=== PATIENT | female | born 1980 | race Caucasian/White ===

== ENCOUNTER → 2019-05-02 10:08 | Outpatient (CLI) | payer BC, SELFPAY ==
--- NOTE | ~2019-05-02 | XR_ITS ---
EXAMINATION: XR wrist LT min 3V DATE: 05/02/2019 10:23 INDICATION: Left wrist localized swelling, mass, and lump. TECHNIQUE: 4 views of left wrist were obtained. COMPARISON: None. FINDINGS: Bone alignment is normal. No fracture. There is mild osteoarthritis of second metacarpophal angeal joint. IMPRESSION: 1. Mild osteoarthritis of second metacarpophalangeal joint. Reviewed, dictated and finalized at location A. ALTY INSURANCE CLAIM ADJUSTER
--- NOTE | ~2019-05-02 | XR_ITS ---
EXAMINATION: XR hand LT min 3V DATE: 05/02/2019 10:23 INDICATION: Left hand localized swelling, mass, and lump. TECHNIQUE: 3 views of left hand were obtained. COMPARISON: None. FINDINGS: Bone alignment is normal. No fracture. There is mild osteoarthritis of second metacarpophal angeal joint. IMPRESSION: 1. Mild osteoarthritis of second metacarpophalangeal joint. Reviewed, dictated and finalized at location A. RAM ARRANGER
== END ==
PROVIDERS: PCP Internal Medicine; Visit Provider Internal Medicine
DX: M19.032 Primary osteoarthritis, left wrist (principal)
CPT/HCPCS: 73110; 73130

== ENCOUNTER 2020-03-19 23:12 | Emergency (ER) | payer BC, SELFPAY ==
--- NOTE | ~2020-03-19 | XR_ITS ---
EXAMINATION: XR chest 1V portable DATE: 03/19/2020 23:43 INDICATION: Tachycardia. Chest pain. TECHNIQUE: frontal view of the chest was obtained. COMPARISON: None FINDINGS: The lungs are clear with no focal airspace opacities, pulmonary edema, pleural effusion or pneumothor ax. Arch size is normal. There is mediastinal widening suspicious for bulky mediastinal lymphadenopat hy. Bones are unremarkable. IMPRESSION: 1. Mediastinal widening which raises concern for bulky mediastinal lymphadenopathy which could be due to lymphoma or metastatic disease. Recommend further evaluation with contrast-enhanced CT. In additi on to the chest would also include the neck, abdomen and pelvis to assess for extent of suspected dis ease and biopsy planning. Reviewed, dictated and finalized at location A. ER LOCKSTITCH IMPRESSION: 1. Mediastinal widening which raises concern for bulky mediastinal lymphadenopa thy which could be due to lymphoma or metastatic disease. Recommend further la luation with contrast-enhanced CT. In addition to the chest would also include the neck, abdomen and pelvis to assess for extent of suspected disease and biop sy planning.
--- NOTE | ~2020-03-19 | CT_ITS ---
EXAMINATION: CTA chest PE protocol EXAM DATE: 03/20/2020 00:43 INDICATION: Tachycardia. TECHNIQUE: Spiral CTA of the chest (pulmonary arteries) was performed with 100 cc Omnipaque 350 intr avenous contrast injection. Images were acquired during the pulmonary arterial phase. Coronal maxi mum intensity projection 3D-reconstructions were created by the technologist on dedicated workstation . Axial, coronal and sagittal reformatted images were reviewed. The dose-length product (DLP) for t his examination was 863.36 mGy-cm. The exposure was tailored according to patient size (auto mA exp osure control), and iterative reconstruction (ASIR) was used as additional dose reduction technique. There is no prior study for comparison. FINDINGS: Pulmonary arteries are well opacified and without intraluminal filling defects. No thora cic aortic dissection. The lungs are clear. Trace pericardial effusion. No pleural effusion. Trac heobronchial tree is patent. There are massive mediastinal and prevascular lymph nodes with prevasc ular conglomerate deven mass measuring 8.4 x 5.6 cm. There is left supraclavicular lymphadenopathy. Smaller left hilar lymphadenopathy. No axillary lymphadenopathy. There is no pneumothorax. Heart n ormal in size. No evidence of coronary arterial calcification. There is hepatic steatosis. There is thoracic spondylosis without osteoblastic or osteolytic lesions identified. IMPRESSION: 1. No pulmonary emboli. 2. Massive mediastinal, prevascular lymphadenopathy. Smaller left supraclavicular lymphadenopathy wo uld be accessible for ultrasound-guided biopsy. Reviewed, dictated and finalized at location A. IL BUSINESS MANAGER IMPRESSION: 1. No pulmonary emboli. 2. Massive mediastinal, prevascular lymphadenopathy. Smaller left supraclavicu lar lymphadenopathy would be accessible for ultrasound-guided biopsy.
[2020-03-19 23:13] VITALS: BP 164/85; PULSE 135; RESP 16; TEMP 37.3; O2SAT 99
--- NOTE | 2020-03-19 23:19 | ECG_ITS ---
Measurements Intervals [place] Rate: 135 P: 52 HI: 152 QRS: 9 QRSD: 90 T: 28 QT: 331 QTc: 496 Interpretive Statements SINUS TACHYCARDIA NONSPECIFIC T-WAVE ABNORMALITY- ANT/INF LEADS BASELINE WANDER- V2-V6 ABNORMAL ECG Electronically Signed On 03-20-2020 7:03:25 BATT MACHINE OPERATOR by Ramses Gonzalez D.O.
--- NOTE | 2020-03-19 23:21 | ED.CHESTPAIN ---
HPI - Chest Pain General Chief Complaint: Chest Pain Stated Complaint: elevated heart rate Time Seen by Provider: 03/19/20 23:19 Source: patient Mode of arrival: EMS Limitations: no limitations History of Present Illness HPI narrative: Patient is a 40-year-old female who presents with palpitations that began acutely tonight EMS was contacted patient was found to have SVT with a heart rate near 200 was given 6 of adenosine followed by 12 adenosine presents with a heart rate around 140 noting improvement but still feeling fatigued and weak started chemotherapy in the last week managed as [facility] in [place] with history of non-Hodgkin's lymphoma. Patient denies vomiting diarrhea or URI symptoms and on arrival just notes feeling fatigued with palpitations continuing patient is on a multitude of new medications to include some experimental medication for her non-Hodgkin's lymphoma has been experiencing GI upset with irritation of the abdomen that occurs with taking her chemo medication patient denies any current pain upon arrival. Patient notes she had Covid in August Related Data Home Medications Medication Instructions Recorded Confirmed omeprazole 20 mg capsule,delayed 20 mg PO .COMPLEX 02/21/19 01/10/20 release triamcinolone acetonide 0.025 % 1 applic TOPICAL BID 02/21/19 01/10/20 lotion Allergies Allergy/AdvReac Type Severity Reaction Status Date / Time metronidazole Allergy Unknown Verified 11/13/18 13:39 METRONIDAZOLE HCL Allergy RASH Uncoded 04/22/12 16:47 Review of Systems Review of Systems: All systems reviewed & are unremarkable except as noted in HPI and below PMFSH Past Medical History Medical History (Updated 03/20/20 @ 01:42 by Aleksandar Hughes PA-C) delivery delivered Non Hodgkin's lymphoma Surgical History Surgical History Hx of tonsillectomy Family History Family History Grandparent Diabetes mellitus, Onset Age: 69 Family history of hypercholesterolemia, Onset Age: 69 Hypertension, Onset Age: 69 Acute myocardial infarction, Onset Age: 70 Family history of malignant neoplasm, Onset Age: 70 Father Family history of hypercholesterolemia Hypertension Family history of cardiac disorder Mother Family history of hypercholesterolemia Hypertension Social History Social History Smoking status: Never smoker Second hand tobacco smoke exposure: No Alcohol intake: never Exam Narrative: Exam Narrative: GENERAL: Well-appearing, obese, and in no acute distress. HEAD: Normocephalic, atraumatic. EYES: PERRLA and EOMI. ENT: Nares clear, no rhinorrhea or epistaxis. Mucous membranes moist. Oropharynx without tonsillar hypertrophy exudate or other lesions. NECK: Supple. No adenopathy or masses. CHEST: Clear to auscultation. No respiratory distress. No wheezes rales or rhonchi HEART: Tachycardic rate and regular rhythm. No murmur heard. Normal peripheral pulses. ABDOMEN: Soft, nontender, nondistended EXTREMITIES: Normal range of motion. No edema. SKIN: Warm, dry, no rash. NEURO: No focal deficits. Alert and oriented x3. Cranial nerves II through XII grossly intact PSYCH: Normal mood and affect. Course Course Emergency Course: Patient was evaluated found to have sinus tachycardia was given adenosine in the field by paramedics for SVT patient has remained with a heart rate around 120 asymptomatic at this time resting comfortably in the room denying any pain or illness or exposures. Patient aware of recommendations and discussion with oncology and agrees to the transfer for admission Consultations Consultation #1: Spoke with oncology at [facility] Dr. Lugo who would like the patient to receive cefepime and will take the patient as a direct admit with no further intervention
[2020-03-19] MEDS: SODIUM CHLORIDE 0.9% IV 1,000 ML 999 ML IV CONT (23:35)
[2020-03-19 23:45] LABS: Basophils Percent Auto 0.6 % (0.2-1.2); Eosinophils Absolute Auto 0.3 K/mm3 (0-0.3); Eosinophils Percent Auto 15.8 % (0-4.4); Hematocrit 35.4 % (37.0-47.0); Hemoglobin 12.4 g/dL (12.0-15.0); Immature Granulocyte Absolute 0.01 K/mm3 (0.00-0.031); Immature Granulocyte Percent A 0.6 % (0-0.5); Lymphocytes Absolute Auto 0.57 K/mm3 (0.9-3.2); Lymphocytes Percent Auto 33.3 % (18.3-44.2); Mean Corpuscular Hemoglobin 29.9 pg (26-34); Mean Corpuscular Volume 85.3 fl (80-100); Mean Platelet Volume 10.7 fl (7.4-10.4); Monocytes Absolute Auto 0.2 K/mm3 (0.1-0.6); Monocytes Percent Auto 13.5 % (2.6-8.5); Neutrophils Absolute Auto 0.6 K/mm3 (1.3-6.7); Neutrophils Percent Auto 36.2 % (45.5-73.1); Platelet Count Result 226 k/mm3 (150-375); Red Blood Count 4.15 M/mm3 (4.2-5.4); Red Cell Distribution Width 12.3 % (11.5-14.5)
[2020-03-19 23:48] LABS: Prothrombin Time 13.5 Seconds (11.1-14.7)
[2020-03-19 23:49] LABS: Lactic Acid Reflex 3.8 mmol/L (0.7-2.1)
[2020-03-20] LABS: White Blood Count 1.7 K/mm3 (4.5-10.0)
[2020-03-20 00:01] LABS: Alanine Aminotransferase 49 U/L (4-35); Albumin Level 3.8 g/dL (3.5-5.1); Alkaline Phosphatase 130 U/L (38-126); Anion Gap 10 mmol/L (8-16); Aspartate Amino Transferase 38 U/L (14-36); Bilirubin,Total 0.4 mg/dL (0.2-1.3); Blood Urea Nitrogen 5 mg/dL (7-17); CRP 0.9 mg/dL (<1.0); Calcium 9.1 mg/dL (8.4-10.2); Carbon Dioxide 25 mmol/L (22-30); Chloride 99 mmol/L (98-107); Creatine Kinase 41 U/L (30-135); Estimated CRCL calculation 168 ml/min; Estimated Glomerular Filt Rate > 60; Glucose 245 mg/dL (65-105); Magnesium 1.3 mg/dL (1.6-2.3); Phosphorus 1.8 mg/dL (2.5-4.5); Potassium 3.3 mmol/L (3.4-5.0); Sodium 134 mmol/L (137-145)
[2020-03-20 00:02] LABS: Troponin I < 0.012 ng/mL (0.000-0.034)
[2020-03-20] MEDS: FAMOTIDINE 20 MG/2 ML VIAL IV PUSH (00:06)
[2020-03-20] MEDS: MAGNESIUM SULF 2 GM/WATER 50ML 2 GM/50 ML BAG IVPB (00:32)
[2020-03-20 00:39] LABS: Add Urine Microscopic? YES; Appearance Urine Cloudy (Clear); Bacteria Urine 4+ /hpf; Bilirubin Urine Negative (Negative); Blood Urine Negative (Negative); Color Urine Yellow (Yellow); Glucose Urine UA Negative (Negative); Ketones Urine Negative (Negative); Leukocyte Esterase Ur Negative LEU/UL (Negative); Mucus Urine Moderate /lpf; Nitrate Urine Negative (Negative); Protein Urine 2+ mg/dL (Negative); RBC Urine 0-2 /hpf (0-2); Squamous Epithelial Cell Urine Many /hpf (Few); Urobilinogen Urine Negative mg/dL (<2.0)
[2020-03-20 00:51] VITALS: BP 155/91; PULSE 119; RESP 18; O2SAT 99
[2020-03-20] MEDS: LACTATED RINGERS 1,000 ML 999 ML IV CONT (02:08)
[2020-03-20 02:34] LABS: Reflex Lactic Acid Yes or No Add Lactic
--- NOTE | 2020-03-20 02:34 | PC.NURSE ---
report to Genny Watt at [facility] . pt to room 32787, transport called
[2020-03-20 03:31] LABS: Lactic Acid 2.7 mmol/L (0.7-2.1)
[2020-03-20 03:48] VITALS: BP 162/89; PULSE 120; RESP 20; O2SAT 99
--- NOTE | 2020-03-20 05:08 | PC.NURSE ---
Addendum entered by Jessica Cheng 03/20/20 06:52: 0635: Pierre called with update...ETA is now 10:45. 0641: [facility]...ETA [id number]. Will call with more definite ETA later. Faxed PCS/Face Sheet per their request. Have not yet cancelled Pierre. Also called, [facility] and [facility], both declined due to not enough staff/trucks. Addendum entered by Jessica Cheng 03/20/20 06:12: 0610: Ignacio called with update...ETA now [id number] Original Note: 0224: Called [facility] to transport patient to [place], [id number]. ETA 0330 0345: Called for status...ETA 0445 0500: Called for status...ETA 0615 (call volume exceeding availability)
[2020-03-20 05:40] VITALS: BP 123/74; PULSE 124; RESP 18; O2SAT 99
[2020-03-20 07:16] VITALS: BP 135/82; PULSE 123; RESP 18; O2SAT 95
[2020-03-20 08:19] VITALS: BP 134/81; PULSE 112; RESP 17; O2SAT 98
== END 2020-03-20 08:20 | disposition short-term general hospital (02) ==
PROVIDERS: Emergency Medicine Emergency Medical Services; Emergency Provider Emergency Medicine; PCP Internal Medicine
DX: D70.9 Neutropenia, unspecified (principal); R00.0 Tachycardia, unspecified
CPT/HCPCS: 36415; 71045; 71275; 80053; 81001; 82550; 83605; 83735; 84100; 84484; 85025; 85610; 85730; 86140; 87040; 87077; 87086; 87088; 87186; 93005; 96365; 96367; 96375; 99285; J0131; J0692; J3475; J7030; J7120; Q9967

== ENCOUNTER 2020-04-03 14:17 | Outpatient (CLI) | payer BC, SELFPAY ==
--- NOTE | ~2020-04-03 | XR_ITS ---
EXAMINATION: XR abdomen/kub 1V DATE: 04/03/2020 14:38 INDICATION: Bloating. Lymphoma. TECHNIQUE: A supine view of the abdomen on 2 radiographs was obtained. COMPARISON: Chest CT 03/20/2020 FINDINGS: There are no dilated loops of bowel. There is a small volume of stool in the colon. There i s an intrauterine device in expected position. IMPRESSION: 1. Normal bowel gas pattern. Reviewed, dictated and finalized at location A. SILVERING SUPERVISOR
== END 2020-04-03 14:18 | disposition home or self-care (01) ==
PROVIDERS: PCP Internal Medicine
DX: C81.10 Nodular sclerosis Hodgkin lymphoma, unspecified site (principal)
CPT/HCPCS: 74018

== ENCOUNTER 2021-09-02 17:40 | Emergency (ER) | payer BC, SELFPAY ==
[2021-09-02] VITALS (14 sets, daily range): BP systolic 127–182; BP diastolic 63–95; PULSE 70–86; RESP 13–23; TEMP 36.1; O2SAT 93–100
--- NOTE | ~2021-09-02 | XR_ITS ---
EXAMINATION: XR chest 2V Exam Date/Time: 09/02/2021 18:25 CDT HISTORY: hypertention, TOOK BP MEDS TODAY, BP IS 182/90 Comparison: 03/19/2020. RESULT: Lines, tubes, and devices: None. Lungs and pleura: Clear. Cardiomediastinal silhouette: Significantly improved mediastinal lymphadenopathy, otherwise unremark able cardiomediastinal silhouette. Other: No acute osseous or upper abdominal finding. IMPRESSION: No acute cardiopulmonary process. Reviewed, dictated and finalized at location K.
--- NOTE | 2021-09-02 17:47 | ECG_ITS ---
Measurements Intervals [place] Rate: 72 P: 30 HI: 186 QRS: 4 QRSD: 104 T: 15 QT: 408 QTc: 448 Interpretive Statements SINUS RHYTHM WITH SINUS ARRHYTHMIA CONSIDER INFERIOR INFARCT, AGE INDETERMINATE BORDERLINE T WAVE ABNORMALITY- ANTERIOR LEADS ABNORMAL ECG Electronically Signed On 09-02-2021 20:05:55 CDT by Ramses Gonzalez D.O.
[2021-09-02 18:02] LABS: Basophils Percent Auto 0.6 % (0.2-1.2); Eosinophils Absolute Auto 0.1 K/mm3 (0-0.3); Eosinophils Percent Auto 2.1 % (0-4.4); Hematocrit 37.2 % (37.0-47.0); Hemoglobin 12.2 g/dL (12.0-15.0); Immature Granulocyte Percent A 1.5 % (0-0.5); Lymphocytes Absolute Auto 1.92 K/mm3 (0.9-3.2); Lymphocytes Percent Auto 28.8 % (18.3-44.2); Mean Corpuscular HGB Conc 32.8 g/dl (32-36); Mean Corpuscular Volume 91.6 fl (80-100); Mean Platelet Volume 9.7 fl (7.4-10.4); Monocytes Absolute Auto 0.6 K/mm3 (0.1-0.6); Monocytes Percent Auto 8.6 % (2.6-8.5); Neutrophils Absolute Auto 3.9 K/mm3 (1.3-6.7); Neutrophils Percent Auto 58.4 % (45.5-73.1); Platelet Count Result 283 k/mm3 (150-375); Red Blood Count 4.06 M/mm3 (4.2-5.4); Red Cell Distribution Width 12.7 % (11.5-14.5); White Blood Count 6.7 K/mm3 (4.5-10.0)
[2021-09-02 18:13] LABS: Prothrombin Time 12.7 Seconds (11.1-14.7)
[2021-09-02 18:15] LABS: Alanine Aminotransferase 51 U/L (6-35); Albumin Level 4.4 g/dL (3.5-5.1); Alkaline Phosphatase 86 U/L (38-126); Anion Gap 10 mmol/L (8-16); Aspartate Amino Transferase 42 U/L (14-36); Bilirubin,Total 0.3 mg/dL (0.2-1.3); Blood Urea Nitrogen 10 mg/dL (7-17); Calcium 9.2 mg/dL (8.4-10.2); Carbon Dioxide 32 mmol/L (22-30); Chloride 101 mmol/L (98-107); Estimated CRCL calculation 120 ml/min; Estimated Glomerular Filt Rate > 60; Glucose 101 mg/dL (65-110); Potassium 3.8 mmol/L (3.4-5.0); Sodium 143 mmol/L (137-145)
[2021-09-02 18:26] LABS: NT Pro B Type Natriuretic Pept 621 pg/mL (5-100); Troponin I < 0.012 ng/mL (0.000-0.034)
--- NOTE | 2021-09-02 18:33 | ED.GENADULT ---
HPI - General Adult General Chief complaint: Unspecified Stated complaint: high BP Time Seen by Provider: 09/02/21 18:34 Source: RN notes reviewed History of Present Illness HPI narrative: Patient presents emergency department from home for hypertension.. Patient states that over the past several days she has been noticing some water retention and states that she feels like she has been bloating in her abdomen as well as swelling in her legs she states that with that she has been feeling generally fatigued as well as some mild shortness of breath with laying flat states that she did take her blood pressure at home and have been elevated and after continued elevations decided come to the ER for further evaluation patient states she is followed by cardiology Dr. Mehul Almodovar at [facility] for history of SVT previous treatment for Hodgkin's lymphoma she states she is on carvedilol 25 mg twice a day which she took this morning and is due for her evening dose at 9 PM she states that she called their office and they recommend she come to the ER for further evaluation states she did take a single dose of Lasix today patient states she is also on rammer ramipril2.5 mg that she takes every other day. Patient denies any fevers or chills chest pain or abdominal pain Related Data Home Medications Medication Instructions Recorded Confirmed carvedilol 09/02/21 metformin mg 09/02/21 09/02/21 pantoprazole PO 09/02/21 ramipril mg 09/02/21 sertraline mg 09/02/21 09/02/21 Allergies Allergy/AdvReac Type Severity Reaction Status Date / Time metronidazole Allergy Unknown Rash Verified 09/02/21 18:40 Review of Systems Review of Systems: Gen.: Denies fevers or chills Eyes: Denies eye pain or visual change ENT: Denies congestion Respiratory: Reports mild short of breath denies cough CV: Denies chest pain or palpitations GI: Denies abdominal pain nausea, emesis or diarrhea Musculoskeletal: Denies back pain or muscle pain or swelling of the legs Neuro: Denies numbness, tingling, weakness or focal weakness Skin: Denies rash Except as documented, all other systems reviewed and negative PMFSH Past Medical History Medical History (Updated 09/02/21 @ 21:28 by Kevin Sheffield DO) delivery delivered Non Hodgkin's lymphoma SVT (supraventricular tachycardia) Surgical History Surgical History Hx of tonsillectomy Family History Family History Grandparent Diabetes mellitus, Onset Age: 69 Family history of hypercholesterolemia, Onset Age: 69 Hypertension, Onset Age: 69 Acute myocardial infarction, Onset Age: 70 Family history of malignant neoplasm, Onset Age: 70 Father Family history of hypercholesterolemia Hypertension Family history of cardiac disorder Mother Family history of hypercholesterolemia Hypertension Social History Social History Smoking status: Never smoker Second hand tobacco smoke exposure: No Alcohol intake: never Exam Narrative: APPEARANCE: No acute distress, nontoxic, resting in bed EYES: EOMI HEENT: Normocephalic, atraumatic, OMM RESPIRATORY: No respiratory distress Clear to auscultation bilaterally with no rhonchi wheezing or rales. CARDIOVASCULAR: Regular rate and rhythm without murmurs rubs or gallops. ABDOMINAL: Soft, nontender, nondistended, no rebound or guarding MUSCULOSKELETAl: Moves all extremities. No clubbing, cyanosis 2+ edema the bilateral lower extremities NEURO: Awake and alert. Following commands, speech normal, no focal deficits SKIN:: Warm, dry. No rashes lesions or abrasions PSYCHIATRIC: Normal affect/mood, Course Course Emergency Course: Reviewed old records patient had an echo and 2020 EF of 54% at that time patient states that her electromedical equipment repairer had added her take the
[2021-09-02 20:51] LABS: Appearance Urine Clear (Clear); Bilirubin Urine Negative (Negative); Blood Urine Negative (Negative); Color Urine Yellow (Yellow); Glucose Urine UA Negative (Negative); Ketones Urine Negative (Negative); Leukocyte Esterase Ur Negative LEU/UL (Negative); Nitrate Urine Negative (Negative); Protein Urine Negative (Negative); Urobilinogen Urine 0.2 mg/dL (<2.0); pH Urine 5.5 (5.0-9.0)
[2021-09-02 21:19] LABS: Add Urine Microscopic? NO
[2021-09-02] MEDS: FUROSEMIDE 20 MG TABLET PO (21:24)
== END 2021-09-02 21:59 | disposition home or self-care (01) ==
PROVIDERS: Emergency Provider Emergency Medicine
DX: I10 Essential (primary) hypertension (principal); R06.02 Shortness of breath; Z85.72 Personal history of non-Hodgkin lymphomas; Z79.899 Other long term (current) drug therapy
CPT/HCPCS: 36415; 71046; 80053; 81001; 81003; 83880; 84484; 85025; 85610; 85730; 93005; 99284; A9270